=== PATIENT | male | born 1990 | race Caucasian/White ===

== ENCOUNTER 2023-08-22 08:38 | Outpatient (CLI) | payer MEDICAID ==
[2023-08-22] MEDS ORDERED: iohexol 300mg/ml 100ml inj. ONE (09:32)
== END 2023-08-22 23:59 | disposition home or self-care (01) ==
LOC: RAD 08:38
PROVIDERS: ATTEND Surgery
DX: K44.9 Diaphragmatic hernia without obstruction or gangrene (principal)
CPT/HCPCS: 71260; J3490; Q9967

== ENCOUNTER → 2023-10-31 | Outpatient (CLI) | payer MEDICAID | END | disposition home or self-care (01) | LOC: RAD 12:05 | PROVIDERS: ATTEND Surgery | DX: K44.9 Diaphragmatic hernia without obstruction or gangrene (principal); K21.9 Gastro-esophageal reflux disease without esophagitis | CPT/HCPCS: 74220 ==

== ENCOUNTER 2023-11-21 06:27 | Inpatient (IN) | payer MEDICAID ==
[2023-11-15 13:37] LABS: BASOPHILS % (AUTO) 0.6 % (0-1); EOSINOPHILS # (AUTO) 0.1 X10'3 (0-0.9); EOSINOPHILS % (AUTO) 0.9 % (0-6); LYMPHOCYTES # (AUTO) 1.6 X10'3 (1.1-4.8); LYMPHOCYTES % (AUTO) 23.5 % (21-51); MEAN CORPUSCULAR HEMOGLOBIN 31.9 PG (27.0-31.0); MEAN CORPUSCULAR HGB CONC 34.1 g/dL (33.0-36.5); MEAN CORPUSCULAR VOLUME 93.5 FL (78-98); MEAN PLATELET VOLUME 6.4 FL (7.4-10.4); MONOCYTES # (AUTO) 0.6 X10'3 (0-0.9); MONOCYTES % (AUTO) 8.8 % (2-12); NEUTROPHILS # (AUTO) 4.6 X10'3 (1.8-7.7); NEUTROPHILS % (AUTO) 66.2 % (42-75); PRE OP HEMATOCRIT 41.3 % (42.0-52.0); PRE OP HEMOGLOBIN 14.1 g/dL (14.0-17.9); PRE OP PLATELET COUNT 271 X10'3 (140-440); RED BLOOD COUNT 4.42 X10'6 (4.70-6.10); RED CELL DISTRIBUTION WIDTH 13.3 % (11.5-14.5)
[2023-11-15 13:56] LABS: ALBUMIN 3.7 G/DL (3.4-5.0); ALBUMIN/GLOBULIN RATIO 1.1 (1.1-1.5); ALKALINE PHOSPHATASE 123 IU/L (46-116); BLOOD UREA NITROGEN 13 MG/DL (7-18); BUN/CREATININE RATIO 11.6 (10.0-20.0); CALCIUM 8.3 MG/DL (8.5-10.1); CHLORIDE 104 MMOL/L (99-107); CREATININE 1.12 MG/DL (0.60-1.10); PRE OP ALT 25 U/L (30-65); PRE OP ANION GAP 1 (8-16); PRE OP AST 10 U/L (10-37); PRE OP BILIRUB, TOTAL 0.4 MG/DL (0.0-1.0); PRE OP GLUCOSE 93 MG/DL (70-104); PRE OP POTASSIUM 3.9 MMOL/L (3.4-5.1); PRE OP SODIUM 137 MMOL/L (135-145); TOTAL CARBON DIOXIDE 31.8 MMOL/L (24-32); TOTAL PROTEIN 7.1 G/DL (6.4-8.2); eGFR 76 ML/MIN
[2023-11-21] VITALS (20 sets, daily range): BP systolic 109–140; BP diastolic 70–94; PULSE 60–97; RESP 14–22; TEMP 96.2–98; O2SAT 95–100
[~2023-11-21] VITALS: Ht 160 cm; Wt 54.6 kg
[2023-11-21] MEDS: cefazolin 2gm/D5W 100mL 100 ML IV ONE (05:30)
[~2023-11-21 06:27] MED LIST: CHOL200074 PO; LUMA42CA PO; OMEG-167 PO
[2023-11-21] MEDS: famotidine 20mg tablet PO ONE (07:33)
[2023-11-21] MEDS: ringers solution, lacted 1,000 ML IV SCH ×2 (07:33→17:05)
[2023-11-21] MEDS ORDERED: fentaNYL/PF 50MCG/1 ML 2ML syringe ONE (08:25)
[2023-11-21] MEDS ORDERED: sevoflurane 250ml liquid IH ONE (08:55)
[2023-11-21] MEDS: BUPIVAcaine 2.5mg/ml inj 50ml vial (contains preservative) ONE (09:37)
[2023-11-21] MEDS: LIDOcaine 1% 30ml preserv. free vial ONE (09:37)
[2023-11-21] MEDS ORDERED: sugammadex 200mg/2ml injection IV ONE (11:08)
[2023-11-21] MEDS ORDERED: naloxone 0.4 mg/ml inj IV PRN (11:35)
[2023-11-21] MEDS ORDERED: ondansetron/PF 4mg/2ml inj IV PRN (11:35)
[2023-11-21] MEDS ORDERED: midazolam 1 mg/ML 2ml injection ONE (11:48)
[2023-11-21] MEDS ORDERED: traMADol 50MG tablet PO PRN (17:00)
[2023-11-21] MEDS: traMADol 50MG tablet PO ONE (17:27)
[2023-11-21] MEDS ORDERED: TRAM50TA2 PO (17:59)
[2023-11-21] MEDS ORDERED: LUMATEPERONE TOSYLATE 42 MG PO SCH (21:00)
[2023-11-22] MEDS ORDERED: enoxaparin 40mg/0.4ml syringe SQ SCH (08:00)
== END 2023-11-21 18:45 | disposition home or self-care (01) | DRG 220 ==
LOC: UNDOADMIN 06:27 → PAS IN 06:27 → UNDOADMIN 11:38 → PAS IN 11:38 → ORTHO 4S 13:22 → PAS IN 13:22 → UNDODISIN 18:45
PROVIDERS: ADMIT Surgery; ATTEND Surgery
PROC: 8E0W4CZ Robotic Assisted Procedure of Trunk Region, Percutaneous Endoscopic Approach (ICD-10-PCS; 2023-11-21)
PROC: 0DNU4ZZ Release Omentum, Percutaneous Endoscopic Approach (ICD-10-PCS; 2023-11-21)
PROC: 0DNL4ZZ Release Transverse Colon, Percutaneous Endoscopic Approach (ICD-10-PCS; 2023-11-21)
PROC: 0FN04ZZ Release Liver, Percutaneous Endoscopic Approach (ICD-10-PCS; 2023-11-21)
PROC: 0DQ64ZZ Repair Stomach, Percutaneous Endoscopic Approach (ICD-10-PCS; 2023-11-21)
PROC: 0BUT4JZ Supplement Diaphragm with Synthetic Substitute, Percutaneous Endoscopic Approach (ICD-10-PCS; principal; 2023-11-21 08:55)
DX: K44.9 Diaphragmatic hernia without obstruction or gangrene (principal); K66.0 Peritoneal adhesions (postprocedural) (postinfection)
CPT/HCPCS: 36415; 71045; 80053; 82948; 85025; A4615; A4618; C1781; G0378; J0690; J1100; J1885; J2250; J2405; J2704; J3010; J3490; J7120

== ENCOUNTER 2023-12-17 05:12 | Inpatient (IN) | payer MEDICAID ==
[~2023-12-17] VITALS: Ht 142.2 cm; Wt 54.6 kg
[~2023-12-17 05:12] MED LIST changes: +TRAM50TA2 PO
[2023-12-17 06:12] LABS: BASOPHILS % (AUTO) 0.4 % (0-1); EOSINOPHILS # (AUTO) 0.1 X10'3 (0-0.9); EOSINOPHILS % (AUTO) 1.7 % (0-6); HEMATOCRIT 43.8 % (42.0-52.0); HEMOGLOBIN 14.7 g/dl (14.0-17.9); LYMPHOCYTES # (AUTO) 1.9 X10'3 (1.1-4.8); LYMPHOCYTES % (AUTO) 29.8 % (21-51); MEAN CORPUSCULAR HEMOGLOBIN 31.4 PG (27.0-31.0); MEAN CORPUSCULAR HGB CONC 33.5 g/dL (33.0-36.5); MEAN CORPUSCULAR VOLUME 93.5 FL (78-98); MEAN PLATELET VOLUME 6.8 FL (7.4-10.4); MONOCYTES # (AUTO) 0.6 X10'3 (0-0.9); MONOCYTES % (AUTO) 10.1 % (2-12); NEUTROPHILS # (AUTO) 3.7 X10'3 (1.8-7.7); PLATELET COUNT 235 X10'3 (140-440); RED BLOOD COUNT 4.68 X10'6 (4.70-6.10); RED CELL DISTRIBUTION WIDTH 13.5 % (11.5-14.5); WHITE BLOOD COUNT 6.4 X10'3 (4.5-11.0)
[2023-12-17 06:19] LABS: ALANINE AMINOTRANSFERASE 32 U/L (12-78); ALBUMIN 3.7 G/DL (3.4-5.0); ALBUMIN/GLOBULIN RATIO 1.2 (1.1-1.5); ALKALINE PHOSPHATASE 115 IU/L (46-116); ANION GAP 9 (8-16); ASPARTATE AMINO TRANSFERASE 18 U/L (10-37); BILIRUBIN,TOTAL 0.3 MG/DL (0.1-1.0); BLOOD UREA NITROGEN 17 MG/DL (7-18); BUN/CREATININE RATIO 25.4 (10.0-20.0); CHLORIDE 104 MMOL/L (99-107); CREATININE 0.67 MG/DL (0.60-1.10); GLUCOSE 86 MG/DL (70-104); POTASSIUM 3.8 MMOL/L (3.5-5.1); SODIUM 143 MMOL/L (135-145); TOTAL CARBON DIOXIDE 29.9 MMOL/L (24-32); TOTAL PROTEIN 6.7 G/DL (6.4-8.2); eCRCL 121 ML/MIN; eGFR > 90 ML/MIN
[2023-12-17 06:28] LABS: THYROID STIMULATING HORMONE 3.17 ulU/ml (0.34-4.50)
[2023-12-17 06:36] LABS: URINE AMPHETAMINE SCREEN NEGATIVE (Neg); URINE BARBITUATE SCREEN NEGATIVE (Neg); URINE BENZODIAZEPINES SCREEN NEGATIVE (Neg); URINE CANNABINOID SCREEN NEGATIVE (Neg); URINE COCAINE SCREEN NEGATIVE (Neg); URINE METHADONE SCREEN NEGATIVE (Neg); URINE OPIATE SCREEN NEGATIVE (Neg); URINE PHENCYCLIDINE SCREEN NEGATIVE (Neg)
[2023-12-17 06:36] LABS: ETHANOL < 10 MG/DL (<10)
[2023-12-17] MEDS ORDERED: MELA5TAB12 PO (06:38)
[2023-12-17] MEDS ORDERED: ASCO500C17 PO (06:38)
[2023-12-17 06:59] LABS: BILIRUBIN,URINE NEGATIVE (Neg); CLARITY,URINE CLOUDY (Clear); COLOR,URINE YELLOW (Yellow); GLUCOSE, URINE NEGATIVE (Neg); KETONES,URINE NEGATIVE (Neg); LEUKOCYTE ESTERASE ,URINE NEGATIVE (Neg); NITRITES, URINE NEGATIVE (Neg); OCCULT BLOOD,URINE NEGATIVE (Neg); PROTEIN,URINE NEGATIVE (Neg); UROBILINOGEN,URINE 0.2 E.U/dL (0.2-1.0)
[2023-12-17 07:14] LABS: UA COLLECTION TYPE CLN CATCH MIDSTREAM
[2023-12-17 07:15] LABS: BACTERIA,URINE NONE SEEN /HPF (Neg); MUCUS STRANDS NONE SEEN /LPF (Neg); RBC,URINE NONE SEEN /HPF (0-2); SQUAMOUS EPITHELIAL CELL,UR FEW /LPF (FEW); WBC,URINE 0-4 /HPF (0-4)
[2023-12-17 07:16] LABS: AMORPHOUS PHOSPHATES 2+
[2023-12-17] MEDS: OMEGA-3/DHA/EPA/FISH OIL 1 EACH CAPSULE.DR PO SCH (08:18)
[2023-12-17] MEDS: ascorbic acid 500mg tablet PO SCH (08:18)
[2023-12-17] MEDS: cholecalciferol (vitamin D3) 1,000 unit (25mcg) tablet PO SCH (08:19)
[2023-12-17] MEDS: LUMATEPERONE TOSYLATE PO SCH (21:00)
[2023-12-17] MEDS: Melatonin 3mg tablet PO SCH (21:00)
[2023-12-17 22:37] VITALS: BP 122/85; PULSE 85; RESP 14; TEMP 97.2; O2SAT 98
[2023-12-17 23:58] VITALS: RESP 14; O2SAT 98
[2023-12-18 07:00] VITALS: BP 113/75; PULSE 80; RESP 16; TEMP 97; O2SAT 99
[2023-12-18 19:44] VITALS: RESP 16; O2SAT 100
[2023-12-18 19:47] VITALS: BP 123/78; PULSE 81; RESP 16; TEMP 96.9; O2SAT 100
[2023-12-18] MEDS: gabapentin 100mg capsule PO SCH (21:04)
[2023-12-18] MEDS: cloNIDine 0.1 mg tablet PO SCH (21:04)
[2023-12-19 07:00] VITALS: BP 120/79; PULSE 78; RESP 14; TEMP 97.3; O2SAT 98
[2023-12-19 09:47] LABS: CHOL/HDL RATIO 3.1 (0.00-4.99); CHOLESTEROL 230 MG/DL (0-200); HDL CHOLESTEROL 74 MG/DL (35-60); LDL CHOLESTEROL 137 MG/DL (50-100); TRIGLYCERIDES 74 MG/DL (20-135)
[2023-12-19] MEDS ORDERED: GABA-530 PO (17:44)
[2023-12-19] MEDS ORDERED: CLON0.1T2 PO (17:44)
== END 2023-12-19 19:30 | disposition home or self-care (01) | DRG 750 ==
LOC: ER 05:12 → ADULT MH 21:30 → UNDOADMIN 21:45
PROVIDERS: ADMIT Physician Assistant; ATTEND Physician Assistant
DX: F20.9 Schizophrenia, unspecified (principal); F32.A Depression, unspecified; F84.0 Autistic disorder; Z20.822 Contact with and (suspected) exposure to COVID-19; Z79.899 Other long term (current) drug therapy
CPT/HCPCS: 36415; 80053; 80061; 80305; 80320; 81001; 83036; 84443; 85025; 87811; 99285

== ENCOUNTER 2024-01-18 09:05 | Emergency (ER) | payer MEDICAID ==
[~2024-01-18] VITALS: Ht 160 cm; Wt 60.0 kg
[~2024-01-18 09:05] MED LIST changes: +ASCO500C17 PO; +CLON0.1T2 PO; +GABA-530 PO; -LUMA42CA PO; +MELA5TAB12 PO; -TRAM50TA2 PO
[2024-01-18] MEDS ORDERED: PALI1.5T2 PO (09:34)
[2024-01-18] MEDS ORDERED: GABA-530 PO (09:34)
[2024-01-18 10:14] LABS: BASOPHILS % (AUTO) 0.3 % (0-1); EOSINOPHILS # (AUTO) 0.1 X10'3 (0-0.9); EOSINOPHILS % (AUTO) 0.9 % (0-6); HEMATOCRIT 44.3 % (42.0-52.0); LYMPHOCYTES # (AUTO) 1.6 X10'3 (1.1-4.8); LYMPHOCYTES % (AUTO) 27.2 % (21-51); MEAN CORPUSCULAR HEMOGLOBIN 31.8 PG (27.0-31.0); MEAN CORPUSCULAR HGB CONC 33.9 g/dL (33.0-36.5); MEAN CORPUSCULAR VOLUME 93.8 FL (78-98); MEAN PLATELET VOLUME 6.6 FL (7.4-10.4); MONOCYTES # (AUTO) 0.4 X10'3 (0-0.9); MONOCYTES % (AUTO) 7.2 % (2-12); NEUTROPHILS # (AUTO) 3.9 X10'3 (1.8-7.7); NEUTROPHILS % (AUTO) 64.4 % (42-75); PLATELET COUNT 225 X10'3 (140-440); RED BLOOD COUNT 4.72 X10'6 (4.70-6.10); RED CELL DISTRIBUTION WIDTH 13.1 % (11.5-14.5)
[2024-01-18 10:27] LABS: BILIRUBIN,URINE NEGATIVE (Neg); CLARITY,URINE SLIGHTLY CLOUDY (Clear); COLOR,URINE YELLOW (Yellow); GLUCOSE, URINE NEGATIVE (Neg); KETONES,URINE NEGATIVE (Neg); LEUKOCYTE ESTERASE ,URINE NEGATIVE (Neg); NITRITES, URINE NEGATIVE (Neg); OCCULT BLOOD,URINE NEGATIVE (Neg); PROTEIN,URINE NEGATIVE (Neg); UROBILINOGEN,URINE 0.2 E.U/dL (0.2-1.0)
[2024-01-18 10:28] LABS: UA COLLECTION TYPE VOIDED
[2024-01-18 10:32] LABS: MUCUS STRANDS MODERATE /LPF (Neg); SQUAMOUS EPITHELIAL CELL,UR FEW /LPF (FEW)
[2024-01-18 10:33] LABS: AMORPHOUS PHOSPHATES 1+; BACTERIA,URINE FEW /HPF (Neg); RBC,URINE 0-2 /HPF (0-2); WBC,URINE 0-4 /HPF (0-4)
[2024-01-18 10:36] LABS: URINE AMPHETAMINE SCREEN NEGATIVE (Neg); URINE BARBITUATE SCREEN NEGATIVE (Neg); URINE BENZODIAZEPINES SCREEN NEGATIVE (Neg); URINE CANNABINOID SCREEN NEGATIVE (Neg); URINE COCAINE SCREEN NEGATIVE (Neg); URINE METHADONE SCREEN NEGATIVE (Neg); URINE OPIATE SCREEN NEGATIVE (Neg); URINE PHENCYCLIDINE SCREEN NEGATIVE (Neg)
[2024-01-18 10:54] LABS: ALBUMIN 3.9 G/DL (3.4-5.0); ANION GAP 6 (8-16); BLOOD UREA NITROGEN 13 MG/DL (7-18); BUN/CREATININE RATIO 17.8 (10.0-20.0); CALCIUM 8.6 MG/DL (8.5-10.1); CHLORIDE 101 MMOL/L (99-107); CREATININE 0.73 MG/DL (0.60-1.10); ETHANOL < 10 MG/DL (<10); GLUCOSE 102 MG/DL (70-104); POTASSIUM 3.5 MMOL/L (3.5-5.1); SODIUM 138 MMOL/L (135-145); THYROID STIMULATING HORMONE 2.72 ulU/ml (0.34-4.50); TOTAL CARBON DIOXIDE 31.2 MMOL/L (24-32); eCRCL 117 ML/MIN; eGFR > 90 ML/MIN
[2024-01-18] MEDS ORDERED: CLON0.1T2 PO (13:34)
[2024-01-19] MEDS ORDERED: FLUO-12 PO (09:46)
[2024-01-19] MEDS ORDERED: LUMA42CA PO (09:46)
[2024-01-19] MEDS: FLUoxetine 20mg capsule PO SCH (11:40)
[2024-01-19] MEDS: cloNIDine 0.1 mg tablet PO SCH (20:45)
[2024-01-19] MEDS: gabapentin 100mg capsule PO SCH (20:45)
[2024-01-19] MEDS: Lumateperone Tosylate (Caplyta) 42MG PO SCH (21:00)
[2024-01-19] MEDS: paliperidone 1.5mg ER tablet PO SCH (21:23)
[2024-01-20] MEDS: diphenhydrAMINE 50 mg/ml inj IM ONE (00:46)
[2024-01-21 07:50] VITALS: TEMP 98.4
[2024-01-21 17:50] VITALS: BP 112/87; PULSE 80; RESP 14; O2SAT 98
== END 2024-01-21 17:53 | disposition home or self-care (01) ==
LOC: ER 09:05
DX: F20.9 Schizophrenia, unspecified (principal); F84.0 Autistic disorder; Z79.899 Other long term (current) drug therapy; Z20.822 Contact with and (suspected) exposure to COVID-19
CPT/HCPCS: 36415; 80048; 80305; 80320; 81001; 84443; 85025; 87811; 96372; 99285

== ENCOUNTER 2024-03-24 06:04 | Outpatient (CLI) | payer MEDICAID ==
[~2024-03-24 06:04] MED LIST changes: -ASCO500C17 PO; -CHOL200074 PO; +FLUO-12 PO; +LUMA42CA PO; -MELA5TAB12 PO; -OMEG-167 PO; +PALI1.5T2 PO
== END 2024-03-24 23:59 | disposition home or self-care (01) ==
LOC: MRI02 06:04
PROVIDERS: ATTEND Nurse Practitioner Family
DX: H91.93 Unspecified hearing loss, bilateral (principal); H61.302 Acquired stenosis of left external ear canal, unspecified; H61.899 Other specified disorders of external ear, unspecified ear; R42 Dizziness and giddiness
CPT/HCPCS: 70551